=== PATIENT | female | born 1930 | race Caucasian/White ===

== ENCOUNTER → 2016-07-03 | Outpatient (CLI) | payer BC ==
[~2016-07-03] MED LIST: CALC-452 PO; CIPR250T5 PO; CLC100 PO; FSM70 PO; GLC500 PO; LSN25 PO; LSX40 PO; MULT-506 PO; NTRGSL/4 SL; OXGN; PANT40TA2 PO; POTA20TA16 PO; SIMV-151 PO; SPR25 PO; TPRSR/50 PO; WARF-246 PO
[2016-07-03 13:15] VITALS: BP 109/63; PULSE 71; TEMP 36.5; O2SAT 89
--- NOTE | 2016-07-03 14:22 | Radiation Oncology Follow-Up ---
Radiation Oncology Follow-Up Date of Visit July 03, 2016. Reason For Visit Annual follow-up Radiation Completion Date 11/29/11 Diagnosis (1) Lung cancer Status: Chronic Onset Date: 08/28/2011 Histology Subtype: adenocarcinoma Stage: lll (A) Permanent Comment: History of abnormal chest x-ray CT scan revealing a right upper lobe mass/consolidation status post bronchoscopy and biopsy 08/28/2011 revealing moderately differentiated adenocarcinoma Status post PET/CT. Clinical stage [id number] Inoperable Status post combined radiation and chemotherapy Radiation completed 11/29/2011 received 7020 cGy Last Edited By: Sherrie Alan on Oct 18, 2014 12:06 Interim History She's been doing well over this past year. She feels her respiratory status is stable. She uses oxygen at bedtime on a regular basis. She uses her oxygen during the day if having increased activity. 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 She is followed closely by her heavy equipment engine mechanic Dr. Estrada. She previously been hospitalized and had a thoracentesis due to a pleural effusion caused by congestive heart failure. He monitors her condition. Her Lasix was increased to one and half tablets per day. She did not require any further follow-up with pulmonary. She had undergone a hip replacement this past year. Unfortunately she developed a DVT. She is now on chronic anticoagulation. She saw Dr. Miner in follow-up 04/04/2016. She was discharged from follow-up by medical oncology. Allergies Coded Allergies: Aspirin (Verified Adverse Reaction, Intermediate, BLEEDING STOMACH, ) Nifedipine (Verified Adverse Reaction, Intermediate, SWELLS, 09/20/15) Oxycodone (Unverified Adverse Reaction, Intermediate, causes her to sleep , hard to wake up, 07/03/16) Home Medications Scheduled Alendronate Sodium (Alendronate Sodium), 70 MG PO WK Calcium Carbonate-Cholecalcife (Calcium 600 + D 600-200 mg-Unit), 1 TAB PO BID Docusate Sodium (Docusate Sodium), 100 MG PO BID Lisinopril (Lisinopril), 2.5 MG PO DAILY Metformin HCl (Metformin HCl), 500 MG PO BID Metoprolol Succinate (Metoprolol Succinate ER), 75 MG PO BID Multivitamin (Multivitamin), 1 TAB PO DAILY Pantoprazole (Pantoprazole Sodium), 40 MG PO DAILY Potassium Ext Rel (Klor-Con), 20 MEQ PO BIDM Simvastatin (Simvastatin), 20 MG PO HS Scheduled PRN Nitroglycerin (Nitrostat), 0.4 MG SL UD PRN for Chest Pain Review of Systems Gastrointestinal: Symptoms: WNL Oral: Symptoms: No Problems Respiratory: Symptoms: SOB With Exertion Respiratory Comments: oxygen 2L prn Urinary: Symptoms: WNL Skin: Symptoms: No Problems Physical Exam Vital Signs Date Time Temp Pulse Resp B/P Pulse Ox O2 Delivery O2 Flow Rate FiO2 07/03/16 13:15 36.5 71 24 109/63 89 Fatigue: None General Appearance: no apparent distress Eyes: normal inspection, EOMI ENT: normal ENT inspection, hearing grossly normal Neck: supple, no adenopathy, thyroid normal Respiratory/Chest: lungs clear, no respiratory distress, no accessory muscle use, + decreased breath sounds Cardiovascular: regular rate, rhythm, no gallop, no murmur Abdomen: non tender, soft Extremities: no pedal edema Neurologic/Psychiatric: no motor/sensory deficits, alert, normal mood/affect Skin: warm/dry Assessment & Plan Plan: She'll now continue follow-up with her primary care physician. She'll also continue follow-up with Dr. Estrada. She will continue to use the oxygen as needed. A follow-up appointment with our office was not given. She may call if she has any questions or concerns regarding happy to see her. Total Time In Follow-Up I spent 20 minutes speaking to the patient and performing examination. I spent 15 minutes reviewing information and completing this note. Copy To Aries Estrdaa D.O.; Stan Vinson M.D. Problem Qualifiers (1) Lung cancer: Laterality: right Lung location: upper lobe of lung Qualified Codes: C34.11 - Malignant neoplasm of upper lobe, right bronchus or lung
== END | disposition home or self-care (01) ==
LOC: C.ONC 13:01
PROVIDERS: ATTEND Physician Assistant Medical
DX: Z08 Encounter for follow-up examination after completed treatment for malignant neoplasm (principal); Z92.3 Personal history of irradiation; Z85.118 Personal history of other malignant neoplasm of bronchus and lung

== ENCOUNTER 2016-11-24 05:29 | Inpatient (IN) | payer BC, OTHER ==
[2016-11-24] VITALS (11 sets, daily range): BP systolic 123–152; BP diastolic 68–75; PULSE 72–111; TEMP 36.4–36.7; O2SAT 91–97; Ht 167.6 cm; Wt 69.4 kg
[~2016-11-24] VITALS: Ht 167.6 cm; Wt 69.4 kg
[~2016-11-24 05:29] MED LIST changes: -CIPR250T5 PO; -LSX40 PO; -OXGN; -PANT40TA2 PO; +PRT/40 PO; -SPR25 PO; -WARF-246 PO
[2016-11-24] MEDS ORDERED: FUROSEMIDE 40 MG/4 ML VIAL IV STA (05:35)
[2016-11-24] MEDS ORDERED: NITROGLYCERIN OINT 2% 1GM PACKET EXT ONE (05:45)
[2016-11-24 06:01] LABS: BASO % 0.4 %; BASO ABS # 0.04 K/uL (0-0.2); COMPLETE YES; EOS % 2.4 %; HEMATOCRIT 41.3 % (37-47); IG% 0.2 %; LYMPH % 23.3 %; LYMPH ABS # 2.61 K/uL (1.2-3.4); MEAN CELL VOLUME 88.8 fL (80-100); MEAN CORPUSCULAR HEMOGLOBIN 28.4 pg (25-34); MEAN PLATELET VOLUME 9.1 fL (7.4-10.4); MONO % 5.5 %; NEUT % 68.2 %; PLATELET COUNT 265 K/uL (130-400); RED BLOOD COUNT 4.65 M/uL (4.2-5.4); WHITE BLOOD COUNT 11.21 K/uL (4.8-10.8)
[2016-11-24 06:21] LABS: ALT/SGPT 20 U/L (12-78); AST/SGOT 20 U/L (15-37); BLOOD UREA NITROGEN 18 mg/dl (7-18); CALCIUM 9.4 mg/dl (8.5-10.1); CARBON DIOXIDE 26 mmol/L (21-32); CHLORIDE 103 mmol/L (98-107); GLUCOSE 224 mg/dl (70-99); POTASSIUM 4.7 mmol/L (3.5-5.1); SODIUM 138 mmol/L (136-145)
[2016-11-24] MEDS ORDERED: SPR25 PO (06:25)
[2016-11-24] MEDS ORDERED: LSX40 PO (06:26)
[2016-11-24 06:27] LABS: ALB/GLOB RATIO 0.8 (0.9-2); ALKALINE PHOSPHATASE 71 U/L (45-117); CKMB/CK RATIO 2.1 (0-3.0)
[2016-11-24] MEDS ORDERED: WARF-246 PO (06:28)
[2016-11-24] MEDS ORDERED: OXGN (06:31)
[2016-11-24 06:58] LABS: INR 1.9 (0.9-1.1); PARTIAL THROMBOPLASTIN RATIO 1.3; PROTHROMBIN TIME (PATIENT) 20.6 SECONDS (9.0-12.0)
--- NOTE | 2016-11-24 06:59 | EMERGENCY ROOM VISIT NOTE ---
History Report prepared by Xi: Bala Rebolledo Under the Supervision of: Dr. Geovani Jean D.O. First contact with patient: 05:33 Chief Complaint: RESPIRATORY DISTRESS Stated Complaint: RESPIRATORY DISTRESS History of Present Illness The patient is an 86 year old female who presents to the Emergency Room with complaints of worsening shortness of breath beginning 2 hours ago. EMS states the patient woke up in respiratory distress. They report the patient has been experiencing a cough for two days, and she was given two squirts fo nitro in route. EMS notes the patient also received C-PAP, and she states it helped her symptoms. They state the patient first spat yellow sputum on their arrival, and she vomited on arrival to the ED. EMS reports the patient denies chest pain. In the room, the patient had an O2Sat of 80 on NC. Source of History: EMS Onset: 2 hours ago Position: chest Quality: other (SOB) Timing: worsening Associated Symptoms: No chest pain Review of Systems See HPI for pertinent positives & negatives. A total of 10 systems reviewed and were otherwise negative. Past Medical & Surgical Medical Problems: (1) CHF (congestive heart failure) (2) CHF exacerbation (3) Chronic combined systolic (congestive) and diastolic (congestive) heart failure (4) CKD (chronic kidney disease), stage III (5) Diabetes (6) Dyslipidemia (7) H/O: GI bleed (8) History of sinus tachycardia (9) Hypertension (10) Left bundle branch block (11) Lung cancer (12) Nonischemic cardiomyopathy (13) Nonobstructive CAD (14) Pulmonary embolism Surgical Problems: (1) H/O adenoidectomy (2) Hx of appendectomy (3) Hx of cholecystectomy (4) Hx of tonsillectomy (5) S/P BSO (bilateral salpingo-oophorectomy) (6) S/P repair of ventral hernia Family History Cancer BROTHER SISTER Diabetes mellitus MOTHER Heart disease FATHER Hypertension MOTHER Lung disease Stroke MOTHER Social History Smoking Status: Former Smoker Alcohol Use: none Drug Use: none Marital Status: Housing Status: lives alone Occupation Status: retired Current/Historical Medications Scheduled Alendronate Sodium (Alendronate Sodium), 70 MG PO WK Calcium Carbonate-Cholecalcife (Calcium 600 + D 600-200 mg-Unit), 1 TAB PO BID Docusate Sodium (Docusate Sodium), 100 MG PO BID Furosemide (Furosemide), 40 MG PO DAILY Home O2 Therapy (Oxygen), 2 LITERS NA CONTINOUS Lisinopril (Lisinopril), 2.5 MG PO DAILY Metformin HCl (Metformin HCl), 500 MG PO BID Metoprolol Succinate (Metoprolol Succinate ER), 75 MG PO BID Multivitamin (Multivitamin), 1 TAB PO DAILY Pantoprazole (Pantoprazole Sodium), 40 MG PO DAILY Simvastatin (Simvastatin), 20 MG PO HS Spironolactone (Spironolactone), 12.5 MG PO DAILY Warfarin Sodium (Warfarin Sodium), 5 MG PO DAILY Scheduled PRN Nitroglycerin (Nitrostat), 0.4 MG SL UD PRN for Chest Pain Allergies Coded Allergies: Aspirin (Verified Adverse Reaction, Intermediate, BLEEDING STOMACH, ) Nifedipine (Verified Adverse Reaction, Intermediate, SWELLS, 11/24/16) Oxycodone (Verified Adverse Reaction, Intermediate, causes her to sleep, hard to wake up, 11/24/16) Physical Exam Vital Signs Date Time Temp Pulse Resp B/P (MAP) Pulse Ox O2 Delivery O2 Flow Rate FiO2 11/24/16 06:32 79 20 109/61 98 CPAP 11/24/16 06:31 11/24/16 06:29 78 18 99 11/24/16 06:01 144/81 11/24/16 05:59 92 24 96 11/24/16 05:43 111 95 70 11/24/16 05:43 97 CPAP 70 11/24/16 05:38 129 11/24/16 05:37 37.3 110 28 176/100 86 Nasal Cannula 3.0 11/24/16 05:37 86 Nasal Cannula 3.0 11/24/16 05:37 86 Nasal Cannula 3.0 11/24/16 05:34 176/101 Physical Exam CONSTITUTIONAL/VITAL SIGNS: Reviewed / noted above. GENERAL: Non-toxic in appearance. INTEGUMENTARY: Warm, dry, and [place]. HEAD: Normocephalic. EYES: without scleral icterus or trauma. ENT/OROPHARYNX: clear and moist. LYMPHADENOPATHY/NECK: Is supple without lymphadenopathy or meningismus. RESPIRATORY: Rales and rhonchi bilaterally, worse on right. Increased workers breathing and respiratory distress. CARDIOVASCULAR: Regular rate and rhythm. GI/ABDOMEN: Soft and nontender. No organomegaly or pulsatile mass. No rebound or guarding. Normal bowel sounds. EXTREMITIES: Warm and well perfused. BACK: No CVA tenderness. NEUROLOGICAL: Intact without focal deficits. PSYCHIATRIC: normal affect. MUSCULOSKELETAL: Normally developed with good muscle tone. Medical Decision & Procedures ER Provider Diagnostic Interpretation: X ray results and stated below per my interpretation and radiology interpretation. One view chest: Diffuse interstitial changes concerning for CHF. Laboratory Results 11/24/16 05:50 Red Blood Count 4.65, Mean Corpuscular Volume 88.8, Mean Corpuscular Hemoglobin 28.4, Mean Corpuscular Hemoglobin Concent 32.0, Mean Platelet Volume 9.1, Neutrophils (%) (Auto) 68.2, Lymphocytes (%) (Auto) 23.3, Monocytes (%) (Auto) 5.5, Eosinophils (%) (Auto) 2.4, Basophils (%) (Auto) 0.4, Neutrophils # (Auto) 7.65, Lymphocytes # (Auto) 2.61, Monocytes # (Auto) 0.62, Eosinophils # (Auto) 0.27, Basophils # (Auto) 0.04 11/24/16 05:50 Test 11/24/16 05:50 11/24/16 05:57 11/24/16 06:39 White Blood Count 11.21 K/uL (4.8-10.8) Red Blood Count 4.65 M/uL (4.2-5.4) Hemoglobin 13.2 g/dL (12.0-16.0) Hematocrit 41.3 % (37-47) Mean Corpuscular Volume 88.8 fL (80-100) Mean Corpuscular Hemoglobin 28.4 pg (25-34) Mean Corpuscular Hemoglobin Concent 32.0 g/dl (32-36) Platelet Count 265 K/uL (130-400) Mean Platelet Volume 9.1 fL (7.4-10.4) Neutrophils (%) (Auto) 68.2 % Lymphocytes (%) (Auto) 23.3 % Monocytes (%) (Auto) 5.5 % Eosinophils (%) (Auto) 2.4 % Basophils (%) (Auto) 0.4 % Neutrophils # (Auto) 7.65 K/uL (1.4-6.5) Lymphocytes # (Auto) 2.61 K/uL (1.2-3.4) Monocytes # (Auto) 0.62 K/uL (0.11-0.59) Eosinophils # (Auto) 0.27 K/uL (0-0.5) Basophils # (Auto) 0.04 K/uL (0-0.2) RDW Standard Deviation 51.6 fL (36.4-46.3) RDW Coefficient of Variation 16.0 % (11.5-14.5) Immature Granulocyte % (Auto) 0.2 % Immature Granulocyte # (Auto) 0.02 K/uL (0.00-0.02) Anion Gap 9.0 mmol/L (3-11) Est Creatinine Clear Calc Drug Dose 32.0 ml/min Estimated GFR () 42.7 Estimated GFR (Non- 36.9 BUN/Creatinine Ratio 14.0 (10-20) Calcium Level 9.4 mg/dl (8.5-10.1) Total Bilirubin 0.4 mg/dl (0.2-1) Aspartate Amino Transf (AST/SGOT) 20 U/L (15-37) Alanine Aminotransferase (ALT/SGPT) 20 U/L (12-78) Alkaline Phosphatase 71 U/L (45-117) Total Creatine Kinase 56 U/L (26-192) Creatine Kinase MB 1.2 ng/ml (0.5-3.6) Creatine Kinase MB Ratio 2.1 (0-3.0) Troponin I < 0.015 ng/ml (0-0.045) Pro-B-Type Natriuretic Peptide 6308 pg/ml (0-1800) Total Protein 7.9 gm/dl (6.4-8.2) Albumin 3.5 gm/dl (3.4-5.0) Globulin 4.4 gm/dl (2.5-4.0) Albumin/Globulin Ratio 0.8 (0.9-2) Bedside Lactic Acid Venous 2.90 mmol/L (0.90-1.70) Laboratory results as stated above per my review. Medications Administered Medications (Trade) Dose Ordered Sig/Tiara Route Start Time Stop Time Status Last Admin Dose Admin Furosemide (Lasix Inj) 40 mg NOW STAT IV 11/24/16 05:35 11/24/16 05:37 DC 11/24/16 05:56 40 MG Nitroglycerin (Nitroglycerin 2% Oint) 1 inch NOW ONCE EXT 11/24/16 05:45 11/24/16 05:46 DC 11/24/16 05:56 1 INCH ECG Indication: SOB/dyspnea Rate (beats per minute): 105 Findings: LBBB, PVC, no acute ischemic change Comparison ECG Date: 09/14/15 Change: LBBB is chronic ED Course 0533: Previous medical records were reviewed. The patient was evaluated in room B01. A complete history and physical examination was performed. 0535: Ordered Furosemide 40mg IV 0545: Ordered Nitroglycerin 1in EXT 0651: I discussed the patient's case with Pio Byrd. The patient will be evaluated for further management and care. 0653: On reevaluation, the patient is resting. I discussed the results and findings with her. She verbalized agreement of the treatment plan. Medical Decision Differentials considered include acute myocardial infarction, acute coronary syndrome, myocarditis, pericarditis, pericardial effusions /tamponade, esophageal perforation, pulmonary embolism, pneumonia, pneumothorax, cardiomyopathy, congestive heart, anemia, and COPD/asthma exacerbation. This is a 86-year-old female who presents to the ED with a chief complaint of acute shortness of breath. The patient symptoms awoke her from sleep this morning. She was transported here by EMS. CPAP improved her symptoms. She was given nitroglycerin sublingual by EMS for hypertension. On her arrival here , she was hypoxic on nasal cannula oxygen with saturations in the low 80s. She improved with BiPAP. She was given IV Lasix as well as nitro paste. The patient has a chest x-ray suggesting acute pulmonary edema. CBC is unremarkable. Troponin was negative. BNP is 6380. The patient was improving during her ED stay. Her saturations were 99% on BiPAP. She felt more comfortable with her breathing. This was removed and she was able to be placed on oxygen via nasal cannula. The patient will be seen by the hospitalist for further inpatient evaluation and care. Consults Time Called: [phone] Consulting Physician: Pio Byrd Returned Call: [phone] I discussed the patient's case with Pio Byrd. The patient will be evaluated for further management and care. Impression Primary Impression: CHF (congestive heart failure) Additional Impressions: Pulmonary edema Respiratory failure Scribe Attestation The scribe's documentation has been prepared under my direction and personally reviewed by me in its entirety. I confirm that the note above accurately reflects all work, treatment, procedures, and medical decision making performed by me. Departure Information Dispostion Being Evaluated By Hospitalist Referrals Stan Vinson M.D. (PCP) Patient Instructions Asthma - [facility], COPD - [facility], Croup - [facility], My [facility] Problem Qualifiers
--- NOTE | 2016-11-24 07:41 | History and Physical ---
History & Physical Date & Time of Service: Nov 24, 2016 at 07:41 . Chief Complaint: difficulty breathing . Primary Care Physician: Stan Vinson M.D. . History of Present Illness Source: patient, clinic records, hospital records 86 YO female followed by Dr. Vinson for Family Medicine and Dr. Estrada for Cardiology. History of nonischemic cardiomyopathy (LVEF 20-25%), nonobstructive CAD, pulmonary embolism, lung Ca, and other problems noted below. She was in her usual state of fair health until around 04:30 this morning when she awoke from sleep with acute dyspnea. No fever. Mild nonproductive cough. No chest pain. No edema. Nausea, no vomiting. No recent weight gain. No recent med changes. She was brought to ED where she was found to be hypoxic and in respiratory distress. Placed on BiPAP and received O2, IV furosemide, NTP with improvement of her symptoms. . Past Medical/Surgical History Chronic and Resolved Medical Problems: (1) Chronic combined systolic (congestive) and diastolic (congestive) heart failure Status: Chronic (2) CKD (chronic kidney disease), stage III Status: Chronic (3) Diabetes mellitus, type 2 Status: Chronic (4) Dyslipidemia Status: Chronic (5) H/O: GI bleed Permanent Comment: due to aspirin (per records) Status: Chronic (6) History of sinus tachycardia Status: Chronic (7) Hypertension Status: Chronic (8) Left bundle branch block Status: Chronic (9) Lung cancer Permanent Comment: History of abnormal chest x-ray CT scan revealing a right upper lobe mass/consolidation status post bronchoscopy and biopsy 08/28/2011 revealing moderately differentiated adenocarcinoma Status post PET/CT. Clinical stage [id number] Inoperable Status post combined radiation and chemotherapy Radiation completed 11/29/2011 received 7020 cGy Status: Chronic (10) Nonischemic cardiomyopathy Permanent Comment: likely tachycardia induced, EF 20-25% Status: Chronic (11) Nonobstructive CAD Status: Chronic (12) Pulmonary embolism Permanent Comment: On coumadin Status: Chronic Surgical Problems: (1) H/O adenoidectomy Status: Chronic (2) Hx of appendectomy Status: Chronic (3) Hx of cholecystectomy Status: Chronic (4) Hx of tonsillectomy Status: Chronic (5) S/P BSO (bilateral salpingo-oophorectomy) Status: Chronic (6) S/P repair of ventral hernia Status: Chronic . Family History FATHER Heart disease MOTHER Diabetes mellitus Stroke Hypertension BROTHER Cancer SISTER Cancer Relation not specified for: Lung disease Social History Smoking Status: Former Smoker Alcohol Use: none Drug Use: none Marital Status: Housing status: lives alone Occupational Status: retired Immunizations History of Influenza Vaccine: Yes History of Tetanus Vaccine?: Yes Tetanus Immunization Date: Jan 04, 2011 History of Pneumococcal: Yes Multi-Drug Resistant Organisms History of MDRO: No Allergies Coded Allergies: Aspirin (Verified Adverse Reaction, Intermediate, BLEEDING STOMACH, ) Nifedipine (Verified Adverse Reaction, Intermediate, SWELLS, 11/24/16) Oxycodone (Verified Adverse Reaction, Intermediate, causes her to sleep, hard to wake up, 11/24/16) Home Medications Scheduled Alendronate Sodium (Alendronate Sodium), 70 MG PO WK Calcium Carbonate-Cholecalcife (Calcium 600 + D 600-200 mg-Unit), 1 TAB PO BID Docusate Sodium (Docusate Sodium), 100 MG PO BID Furosemide (Furosemide), 40 MG PO DAILY Home O2 Therapy (Oxygen), 2 LITERS NA CONTINOUS Lisinopril (Lisinopril), 2.5 MG PO DAILY Metformin HCl (Metformin HCl), 500 MG PO BID Metoprolol Succinate (Metoprolol Succinate ER), 75 MG PO BID Multivitamin (Multivitamin), 1 TAB PO DAILY Pantoprazole (Pantoprazole Sodium), 40 MG PO DAILY Simvastatin (Simvastatin), 20 MG PO HS Spironolactone (Spironolactone), 12.5 MG PO DAILY Warfarin Sodium (Warfarin Sodium), 0 PO UD Scheduled PRN Nitroglycerin (Nitrostat), 0.4 MG SL UD PRN for Chest Pain Review of Systems Constitutional: No fever, No weight loss Eyes: No worsening of vision, No diplopia ENT: No nasal symptoms, No sore throat Respiratory: + problem reported (per HPI) Cardiovascular: + problem reported (per HPI) Abdomen: + nausea, No pain, No vomiting, No diarrhea, No GI bleeding Musculoskeletal: + joint pain Genitourinary - Female: No dysuria, No hematuria Neurologic: + problem reported (no headache, no diabetic neuropathy) Endocrine: + problem reported (blood sugars well controlled), No excessive thirst, No excessive urination Hematologic / Lymphatic: No abnormal bleeding/bruising, No swollen lymph nodes Integumentary: No rash, No new/changing skin lesions Physical Exam Vital Signs Date Time Temp Pulse Resp B/P (MAP) Pulse Ox O2 Delivery O2 Flow Rate FiO2 11/24/16 07:18 91 Nasal Cannula 4.0 11/24/16 07:11 90 Nasal Cannula 4.0 11/24/16 07:10 87 Nasal Cannula 3.0 11/24/16 06:32 79 20 109/61 98 CPAP 11/24/16 06:31 11/24/16 06:29 78 18 99 11/24/16 06:01 144/81 11/24/16 05:59 92 24 96 11/24/16 05:43 111 95 70 11/24/16 05:43 97 CPAP 70 11/24/16 05:38 129 11/24/16 05:37 37.3 110 28 176/100 86 Nasal Cannula 3.0 11/24/16 05:37 86 Nasal Cannula 3.0 11/24/16 05:37 86 Nasal Cannula 3.0 11/24/16 05:34 176/101 General Appearance: WD/WN, + mild distress Head: normocephalic, atraumatic Eyes: normal inspection, PERRL, EOMI, sclerae normal (conjunctivae pink) ENT: hearing grossly normal, pharynx normal, + pertinent finding (upper dentures) Neck: supple, no adenopathy, thyroid normal, trachea midline Respiratory/Chest: no accessory muscle use, + crackles Cardiovascular: regular rate, rhythm, no edema, no gallop (none appreciated, exam limited), no murmur (none appreciated, exam limited), + JVD Abdomen/GI: normal bowel sounds, non tender, soft, no organomegaly Extremities/Musculoskelatal: normal inspection, no calf tenderness, no pedal edema, + pertinent finding (capillary refill toes 1-2 sec; pedal pulses diminished) 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 (PERRL, EOMI, no facial palsy, no dysarthria), no motor/sensory deficits (motor strength upper and lower extremities grossly intact), alert, normal mood/affect, normal reflexes ( patellar reflexes 2/2; plantar reflexes downgoing), oriented x 3 Skin: normal color, warm/dry, no rash Lymphatic: no adenopathy (cervical) Diagnostics Laboratory Results Results Past 24 Hours Test 11/24/16 05:50 11/24/16 05:57 11/24/16 06:39 Range/Units White Blood Count 11.21 4.8-10.8 K/uL Red Blood Count 4.65 4.2-5.4 M/uL Hemoglobin 13.2 12.0-16.0 g/dL Hematocrit 41.3 37-47 % Mean Corpuscular Volume 88.8 80-100 fL Mean Corpuscular Hemoglobin 28.4 25-34 pg Mean Corpuscular Hemoglobin Concent 32.0 32-36 g/dl Platelet Count 265 130-400 K/uL Mean Platelet Volume 9.1 7.4-10.4 fL Neutrophils (%) (Auto) 68.2 % Lymphocytes (%) (Auto) 23.3 % Monocytes (%) (Auto) 5.5 % Eosinophils (%) (Auto) 2.4 % Basophils (%) (Auto) 0.4 % Neutrophils # (Auto) 7.65 1.4-6.5 K/uL Lymphocytes # (Auto) 2.61 1.2-3.4 K/uL Monocytes # (Auto) 0.62 0.11-0.59 K/uL Eosinophils # (Auto) 0.27 0-0.5 K/uL Basophils # (Auto) 0.04 0-0.2 K/uL RDW Standard Deviation 51.6 36.4-46.3 fL RDW Coefficient of Variation 16.0 11.5-14.5 % Immature Granulocyte % (Auto) 0.2 % Immature Granulocyte # (Auto) 0.02 0.00-0.02 K/uL Sodium Level 138 136-145 mmol/L Potassium Level 4.7 3.5-5.1 mmol/L Chloride Level 103 98-107 mmol/L Carbon Dioxide Level 26 21-32 mmol/L Anion Gap 9.0 3-11 mmol/L Blood Urea Nitrogen 18 7-18 mg/dl Creatinine 1.30 0.60-1.20 mg/dl Est Creatinine Clear Calc Drug Dose 32.0 ml/min Estimated GFR () 42.7 Estimated GFR (Non- 36.9 BUN/Creatinine Ratio 14.0 10-20 Random Glucose 224 70-99 mg/dl Calcium Level 9.4 8.5-10.1 mg/dl Total Bilirubin 0.4 0.2-1 mg/dl Aspartate Amino Transf (AST/SGOT) 20 15-37 U/L Alanine Aminotransferase (ALT/SGPT) 20 12-78 U/L Alkaline Phosphatase 71 45-117 U/L Total Creatine Kinase 56 26-192 U/L Creatine Kinase MB 1.2 0.5-3.6 ng/ml Creatine Kinase MB Ratio 2.1 0-3.0 Troponin I < 0.015 0-0.045 ng/ml Pro-B-Type Natriuretic Peptide 6308 0-1800 pg/ml Total Protein 7.9 6.4-8.2 gm/dl Albumin 3.5 3.4-5.0 gm/dl Globulin 4.4 2.5-4.0 gm/dl Albumin/Globulin Ratio 0.8 0.9-2 Bedside Lactic Acid Venous 2.90 0.90-1.70 mmol/L Prothrombin Time 20.6 9.0-12.0 SECONDS Prothromb Time International Ratio 1.9 0.9-1.1 Activated Partial Thromboplast Time 34.3 21.0-31.0 SECONDS Partial Thromboplastin Ratio 1.3 Microbiology Results 11/24/16 Blood Culture, Received Pending 11/24/16 Blood Culture, Received Pending Diagnostic Radiology CHEST ONE VIEW PORTABLE FINDINGS: Progressive diffuse interstitial thickening and small bilateral pleural effusions. The heart remains mildly enlarged. No pneumothorax. Right perihilar linear densities may be due to atelectasis. IMPRESSION: Progressive interstitial thickening and small bilateral pleural effusions. This suggest mild pulmonary edema. Electronically signed by: Ryland Graham M.D. 11/24/2016 7:40 AM Dictated Date/Time: 11/24/2016 7:39 AM . EKG EKG performed at 05:[address] at 105 / minute, PVC's, LBBB , repolarization abnormalities. . Impression Assessment and Plan ACUTE RESPIRATORY FAILURE Presented with hypoxia, tachypnea, respiratory distress requiring ventilatory support with BiPAP. Most likely due to CHF as discussed below. Continue supplemental O2. BiPAP PRN. CHF Acute on chronic left ventricular systolic and diastolic failure - apparent flash pulmonary edema, mechanism uncertain. [place] to have nonischemic cardiomyopathy. LVEF 20-25% per previous echo- no need to repeat at this time. Exam, chest x-ray, BNP consistent with acute CHF. Received IV furosemide in ED. Repeat dose of IV furosemide this afternoon; further dosing per reassessment tomorrow morning. Received NTP in ED- continue. Continue spironolactone, lisinopril, metoprolol succinate. Consult Cardiology. CORONARY ARTERY DISEASE History nonocclusive coronary artery disease. No chest pain. Check serial cardiac markers. Continue metoprolol. HYPERTENSION Continue cardiovascular meds as noted above. Follow and titrate Rx. CHRONIC RESPIRATORY FAILURE On home O2 2 LPM. Continue supplemental O2. ABNORMAL CHEST X-RAY Chest x-ray shows apparent atelectasis right lung, similar to 2016. Has prior history of lung Ca as summarized in problem list. X-ray findings appear to be chronic. No further evaluation at this time. CKD III Serum creatinine 1.3. Monitor closely while received IV diuretics. DM TYPE 2 Usually managed with metformin. Hgb A1C 6.5 in clinic 10/31/16. Random glucose in ED 224. Hold metformin while acutely ill. Lantus / NovoLog per protocol with liberal goal range. VTE PROPHYLAXIS Continue warfarin. Ambulate. RESUSCITATION STATUS Discussed with patient and her family. She has a living will. She prefers a natural passing and does not want CPR, intubation, or other extraordinary measures to be attempted in the event of a cardiopulmonary arrest. Resuscitation status, therefore, is "Level 5" (DNR). . VTE Prophylaxis Risk Level: Moderate Given or contraindicated: Warfarin (Coumadin)
[2016-11-24] MEDS ORDERED: ACETAMINOPHEN 325 MG TAB PO PRN (07:45)
[2016-11-24] MEDS ORDERED: NITROGLYCERIN 0.4 MG SL PER TAB CHARGE SL PRN ×2 (07:45→10:30)
[2016-11-24] MEDS ORDERED: LISINOPRIL 2.5 MG TAB PO ONE (10:20)
[2016-11-24] MEDS ORDERED: METOPROLOL SUCC 25MG EXT REL TAB PO ONE (10:20)
[2016-11-24] MEDS ORDERED: MULTIVITAMIN TAB PO ONE (10:20)
[2016-11-24] MEDS ORDERED: DOCUSATE SODIUM 100 MG CAP PO ONE (10:20)
[2016-11-24] MEDS ORDERED: SPIRONOLACTONE 25 MG TAB PO ONE (10:20)
[2016-11-24] MEDS ORDERED: PANTOprazole SOD 40 MG TAB PO ONE (10:20)
[2016-11-24] MEDS ORDERED: INSULIN GLARGINE SOLOSTAR 100 UNITS/ML 3 ML PEN SC ONE (10:32)
[2016-11-24] MEDS ORDERED: GLUCAGON FOR INJ 1 MG VIAL SQ PRN (11:30)
[2016-11-24] MEDS ORDERED: GLUCOSE 10 TABS/TUBE PO PRN (11:30)
[2016-11-24] MEDS ORDERED: GLUCOSE 40% GEL 15 GM TUBE PO PRN (11:30)
[2016-11-24] MEDS ORDERED: DEXTROSE 50% 50 ML SYR IV PRN (11:30)
[2016-11-24] MEDS: NITROGLYCERIN OINT 2% 1GM PACKET EXT SCH ×3 (12:39→23:45)
[2016-11-24] MEDS: INSULIN ASPART 100 UNITS/ML 3 ML PEN SC SCH ×3 (12:47→20:10)
--- NOTE | 2016-11-24 13:10 | CARDIOLOGY CONSULTATION ---
DATE OF CONSULTATION: 11/24/2016 REFERRING PHYSICIAN: Dr. Randy Powell. REASON FOR CONSULTATION: Heart failure. HISTORY OF PRESENT ILLNESS: Ms. Ortiz is an 86-year-old female with a history of nonischemic cardiomyopathy and ejection fraction of 20%-25%. She was in her usual state of health yesterday and was quite active around her home. She awoke this morning at approximately 4 a.m. with acute shortness of breath. She summoned EMS and was brought to the Emergency Department. The patient was treated with sublingual nitroglycerin en route. On arrival to the ER, she was noted to be hypoxic. She was treated with BiPAP and intravenous furosemide. The patient's symptoms greatly improved. She has diuresed approximately 300 mL per review of records. Currently, her BiPAP has been removed. She is sitting upright and tolerated her midday meal. She continues to wear supplemental oxygen. At home, she uses supplemental oxygen as needed as well as at bedtime. Her most recent echocardiogram was performed in June 2015, confirming nonischemic cardiomyopathy. The patient denies any recent weight gain, lower extremity edema, orthopnea, or PND. Her functional capacity has been stable. Denies any chest discomfort, heaviness, or tightness. She has been compliant with medications. Denies any excessive sodium or fluid intake. She notes yellow sputum production and cough. Voices concern regarding possible bronchitis. She also notes some suprapubic tenderness and voices concern whether she is suffering from a bladder infection. She otherwise offers no other complaints at this time. REVIEW OF SYSTEMS: The pertinent positives noted above. A comprehensive 10-system review otherwise negative. PAST MEDICAL HISTORY: 1. Nonischemic cardiomyopathy with an ejection fraction of 20%-25%, declining ICD implantation in the past. 2. Chronic systolic heart failure with a history of decompensation in the past. 3. Nonsmall cell lung carcinoma, inoperable, treated with chemotherapy and radiation. 4. Left bundle branch block. 5. 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 6. Hypertension. 7. CKD, stage III. 8. Pleural effusions requiring thoracentesis. 9. Gastrointestinal bleed due to aspirin for review of records. 10. Nonobstructive coronary artery disease per cardiac catheterization in March 2015. PAST SURGICAL HISTORY: 1. Cardiac catheterization in March 2015, demonstrating a 60% ramus stenosis as well as 40%-50% mid RCA stenosis. 2. Tonsil and adenoidectomy. 3. Appendectomy. 4. Cholecystectomy. 5. Bilateral salpingo-oophorectomy. 6. Ventral hernia repair. FAMILY HISTORY: Negative for premature CAD or sudden cardiac ; however, noncontributory given the patient's age. SOCIAL HISTORY: Former tobacco abuse, she is , and she lives alone. ALLERGIES: ASPIRIN, NIFEDIPINE, AND OXYCODONE. CURRENT HOME MEDICATIONS: 1. Alendronate 70 mg weekly. 2. Calcium carbonate daily. 3. Colace daily. 4. Lasix 40 mg daily. 5. Oxygen 2 liters nasal cannula. 6. Lisinopril 2.5 mg daily. 7. Metformin 500 mg twice daily. 8. Toprol-XL 75 mg twice daily. 9. Multivitamin daily. 10. Protonix 40 mg daily. 11. Simvastatin 20 mg at bedtime. 12. Aldactone 12.5 mg daily. 13. Coumadin 5 mg as directed by the anticoagulation clinic. ECG on admission demonstrates sinus rhythm with a left bundle branch block. Chest x-ray on admission demonstrates pulmonary edema. Telemetry demonstrates sinus rhythm, left bundle branch block. LABORATORY DATA: INR is 1.9. Sodium is 130, potassium 4.7, chloride 103, CO2 is 26, BUN is 18, creatinine 1.30, and glucose 350. ProBNP 6308. White blood cell count 11.21, hemoglobin is 13.2, and platelet count is 265. PHYSICAL EXAMINATION: VITAL SIGNS: Temperature is 36.5 degrees centigrade, pulse is 78 beats per minute and regular, respiratory rate 16 breaths per minute, blood pressure 126/68 and SaO2 is 94% on 4 liters nasal cannula. GENERAL: NAD, awake, alert and oriented x3. HEENT: Her mucous membranes are moist. No scleral icterus. Conjunctivae pink. NECK: Supple without carotid bruit. There is no evidence of jugular venous distention in upright position. LUNGS: Demonstrate clear breath sounds, which are mildly diminished at the bases bilaterally. No rales, rhonchi or wheeze. ABDOMEN: Soft and nontender. No rebound or guarding. Normal bowel sounds. EXTREMITIES: Warm and dry. There is no clubbing, cyanosis, or edema. NEUROLOGIC: Demonstrates no focal deficit. FINAL IMPRESSION: 1. An 86-year-old female admitted with acute decompensated systolic heart failure and symptoms consistent with flash pulmonary edema. No precipitating factors elucidated per history. Cardiac enzymes negative thus far without ongoing chest discomfort. No paroxysmal dysrhythmias per review of telemetry. 2. Nonischemic cardiomyopathy, ejection fraction of 20%-25%, declining ICD therapy in the past. 3. Nonobstructive coronary artery disease per cardiac catheterization in March 2015. 4. Hypertension -- controlled. 5. Chronic kidney disease, stage III. 6. History of saddle pulmonary embolus, on chronic anticoagulation -- INR mildly subtherapeutic. PLAN AND RECOMMENDATIONS: Repeat resting 2D transthoracic echo will be performed to assess LV systolic function at this time. Cardiac enzymes will be trended x3 sets. From a medication perspective, I am adding 40 mg of intravenous furosemide this afternoon. She will continue to use topical nitrates for afterload reduction. Continue telemetry monitoring during hospitalization. Other cardiovascular medications will be continued as listed above. Further recommendations pending review of testing and clinical course. Thank you for allowing me to take part in the care of your patient. LEILANI
[2016-11-24 13:23] LABS: POTASSIUM 4.5 mmol/L (3.5-5.1)
--- NOTE | 2016-11-24 14:30 | ECHOCARDIOGRAM REPORT ---
*NOTICE TO RECEIVING LIBERTARIAN AGENCY This information is strictly Confidential and protected under [place] law. [place] law prohibits you from making any further disclosure of this information unless further disclosure is expressly permitted by the written consent of the person to whom it pertains or is authorized by law. A general authorization for the release of medical or other information is not sufficient for this purpose. Hospital accepts no responsibility if the information is made available to any other person, INCLUDING THE PATIENT. Interpretation Summary * Name: CHAIM RODRIGUEZ Study Date: 11/24/2016 01:13 PM BP: 126/68 mmHg * Patient Location: [facility] HR: 78 * : 1930 (M/d/yyyy) Gender: Female Height: 66 in * Age: 86 yrs Ethnicity: [place] Weight: 170 lb * Ordering Physician: Joel Carver DO * Performed By: Yamileth Villagran RDCS * * Reason For Study: CHF * BSA: 1.9 m2 * The study was technically adequate. * Compared to prior study, there is no significant change. * -- Conclusions -- * The left ventricle is mildly dilated. * Ejection Fraction = 20-25%. * Septal motion is consistent with conduction abnormality. * Otherwise, severe global hypokinesis. * There is mild mitral regurgitation. * Grade I diastolic dysfunction, (abnormal relaxation pattern). * Mild aortic regurgitation. Procedure Details * A complete two-dimensional transthoracic echocardiogram was performed (2D, M-mode, Doppler and color flow Doppler). * The study was technically limited. * The study was technically difficult. * A contrast injection of Definity was performed to improve assessment of LV function. * Contrast was injected into an intravenous site in the right arm. * One vial of Definity ultrasound contrast was diluted in normal saline to a total volume of 10 ml. A total of '3' ml of solution was administered during imaging. * Lot # [id number] of Definity utilized for procedure. * Expiration date DEC 19. * The attending nurse who injected the contrast agent was Otilia Sarmiento RN. Left Ventricle * The left ventricle is mildly dilated. * There is no thrombus. * There is normal left ventricular wall thickness. * Left ventricular systolic function is severely reduced. * Ejection Fraction = 20-25%. * Septal motion is consistent with conduction abnormality. * Otherwise, severe global hypokinesis. Right Ventricle * The right ventricle is normal size. * The right ventricular systolic function is normal as assessed by tricuspid annular plane systolic excursion (TAPSE) (normal >1.5 cm). Atria * The left atrial size is normal. * Right atrial size is normal. * There is no evidence of atrial septal defect, but resolution does not allow assessment for a patent foramen ovale. Mitral Valve * There is moderate to severe mitral annular calcification. * The mitral valve leaflets appear thickened, but open well. * There is no mitral valve stenosis. * There is mild mitral regurgitation. Tricuspid Valve * The tricuspid valve is normal. * There is no tricuspid stenosis. * Significant tricuspid regurgitation is absent. Aortic Valve * The aortic valve is trileaflet. * Aortic valve sclerosis mild, without significant aortic valvular stenosis. * Aortic stenosis is absent. * Mild aortic regurgitation. Pulmonic Valve * The pulmonary valve is not well seen, but the Doppler examination is normal without significant regurgitation or stenosis. Great Vessels * The aortic root and proximal ascending aorta are normal sized. Pericardium/Pleural * There is no pericardial effusion. Great Vessels * Normal inferior vena cava diameter and respiratory variation suggests normal central venous pressure. Left Ventricular Diastolic Function * Grade I diastolic dysfunction, (abnormal relaxation pattern). MMode 2D Measurements and Calculations LA dimension 3.9 cm LVAd ap4 34.6 cm\S\2 LVLd ap4 7.7 cm EDV(MOD-sp4) 128.9 ml EDV(sp4-el) 132.3 ml LVAs ap4 25.0 cm\S\2 LVLs ap4 6.7 cm ESV(MOD-sp4) 76.0 ml ESV(sp4-el) 78.8 ml EF(MOD-sp4) 41.1 % EF(sp4-el) 40.4 % SV(MOD-sp4) 52.9 ml SI(MOD-sp4) 28.4 ml/m\S\2 SV(sp4-el) 53.5 ml SI(sp4-el) 28.7 ml/m\S\2 Doppler Measurements and Calculations MV E max mesfin 67.9 cm/sec MV A max mesfin 103.8 cm/sec MV E/A 0.65 MV dec time 0.13 sec Ao V2 max 144.8 cm/sec Ao max PG 8.4 mmHg Ao max PG (full) 7.0 mmHg AI max mesfin 307.7 cm/sec AI max PG 37.9 mmHg AI dec slope 68.1 cm/sec\S\2 AI P1/2t 1322.4 msec LV V1 max PG 1.4 mmHg LV V1 max 59.2 cm/sec
[2016-11-24] MEDS ORDERED: FUROSEMIDE INJ 40 MG in SYRINGE 0 ML IV ONE ×2 (15:00→16:00)
[2016-11-24] MEDS ORDERED: INFLUENZA ADMINISTRATION CHARGE ONE (15:15)
[2016-11-24] MEDS ORDERED: INFLUENZA VACCINE HIGH DOSE 65+ 0.5 ML SYR IM. ONE (15:15)
[2016-11-24] MEDS: WARFARIN SOD 5 MG TAB PO SCH (15:44)
[2016-11-24 18:05] LABS: URINE APPEARANCE CLEAR (CLEAR); URINE BILIRUBIN NEG (NEG); URINE COLOR YELLOW; URINE NITRITE NEG (NEG); URINE PH 7.5 (4.5-7.5); URINE SPECIFIC GRAVITY 1.011 (1.000-1.030); UROBILINOGEN NEG (NEG); ZZUR CULT IF INDIC CLEAN CATCH YES
[2016-11-24 18:17] LABS: MANUAL MICROSCOPIC REQUIRED? NO; REVIEW REQ? NO
[2016-11-24] MEDS: DOCUSATE SODIUM 100 MG CAP PO SCH (20:09)
[2016-11-24] MEDS: SIMVASTATIN 20 MG TAB PO SCH (20:09)
[2016-11-24] MEDS: METOPROLOL SUCC 50MG EXT REL TAB PO SCH (20:10)
[2016-11-24] MEDS: INSULIN GLARGINE SOLOSTAR 100 UNITS/ML 3 ML PEN SC SCH (20:10)
[2016-11-24 21:31] LABS: POTASSIUM 3.9 mmol/L (3.5-5.1)
[2016-11-25] VITALS (8 sets, daily range): BP systolic 78–125; BP diastolic 42–75; PULSE 54–76; TEMP 36.4–36.9; O2SAT 94–99
[2016-11-25] MEDS: NITROGLYCERIN OINT 2% 1GM PACKET EXT SCH ×4 (05:54→23:57)
[2016-11-25 05:57] LABS: HEMATOCRIT 32.7 % (37-47); MEAN CELL VOLUME 87.2 fL (80-100); MEAN CORPUSCULAR HEMOGLOBIN 28.3 pg (25-34); MEAN CORPUSCULAR HGB CONC 32.4 g/dl (32-36); PLATELET COUNT 182 K/uL (130-400); RED BLOOD COUNT 3.75 M/uL (4.2-5.4)
[2016-11-25 06:26] LABS: BUN/CREATININE RATIO 20.9 (10-20); CALCIUM 8.6 mg/dl (8.5-10.1); CREATININE 1.2 mg/dl (0.60-1.20); POTASSIUM 3.6 mmol/L (3.5-5.1)
--- NOTE | 2016-11-25 07:23 | DIAGNOSTIC IMAGING REPORT ---
CHEST ONE VIEW PORTABLE CLINICAL HISTORY: f/u CHF dyspnea COMPARISON STUDY: 11/24/2016 FINDINGS: Mild stable cardiomegaly. Prominent parenchymal and right perihilar parenchymal prominence. This is unchanged. Diminished components of congestive failure. IMPRESSION: Some improved exam with mildly improved components of congestive failure. The above report was generated using voice recognition software. It may contain grammatical, syntax or spelling errors. Electronically signed by: Renato Pablo M.D. 11/25/2016 7:22 AM Dictated Date/Time: 11/25/2016 7:21 AM
[2016-11-25] MEDS: DOCUSATE SODIUM 100 MG CAP PO SCH ×2 (08:46→20:10)
[2016-11-25] MEDS: MULTIVITAMIN TAB PO SCH (08:47)
[2016-11-25] MEDS: SPIRONOLACTONE 25 MG TAB PO SCH (08:47)
[2016-11-25] MEDS: PANTOprazole SOD 40 MG TAB PO SCH (08:48)
[2016-11-25] MEDS: METOPROLOL SUCC 50MG EXT REL TAB PO SCH ×2 (08:48→20:10)
[2016-11-25] MEDS: LISINOPRIL 2.5 MG TAB PO SCH (08:50)
[2016-11-25] MEDS: CIPROFLOXACIN 250 MG TAB PO SCH ×2 (08:55→20:47)
[2016-11-25] MEDS: INSULIN ASPART 100 UNITS/ML 3 ML PEN SC SCH ×4 (08:58→20:08)
[2016-11-25] MEDS: INSULIN GLARGINE SOLOSTAR 100 UNITS/ML 3 ML PEN SC SCH ×2 (08:59→20:26)
--- NOTE | 2016-11-25 11:13 | Cardiology Follow-Up ---
Subjective General Date of Service: Nov 25, 2016. Pt evaluation today including: conversation w/ patient, physical exam, chart review, lab review, review of studies, review of inpatient medication list History of Present Illness The patient is a 86 year old female seen in follow-up. Patient is feeling well this a.m. Requesting discharge. Denies chest pain or shortness of breath. No orthopnea or paroxysmal nocturnal dyspnea. Offers no complaints this time. Allergies Coded Allergies: Aspirin (Verified Adverse Reaction, Intermediate, BLEEDING STOMACH, ) Nifedipine (Verified Adverse Reaction, Intermediate, SWELLS, 11/24/16) Oxycodone (Verified Adverse Reaction, Intermediate, causes her to sleep, hard to wake up, 11/24/16) Social History Smoking Status: Former Smoker Hx Tobacco Use In Past Year?: Yes (quit in 1949"s) Hx Alcohol Use - Type And Amou: No Hx Substance Use - Type And Am: No Problem List Medical Problems: (1) Acute exacerbation of CHF (congestive heart failure) Status: Acute (2) Anticoagulated on warfarin Status: Acute (3) CHF (congestive heart failure) Status: Acute (4) Chronic lung disease Status: Acute (5) Congestive heart failure Status: Acute (6) Hypoxia Status: Acute (7) Hypoxia Status: Acute (8) Hypoxia Status: Acute (9) Pulmonary edema Status: Acute (10) Pulmonary edema Status: Acute (11) Pulmonary fibrosis Status: Acute (12) Respiratory failure Status: Acute (13) SOB (shortness of breath) Status: Acute Review of Systems Respiratory: No cough, No sputum, No wheezing, No shortness of breath, No dyspnea on exertion, No dyspnea at rest, No hemoptysis Cardiac: No chest pain, No orthopnea, No PND, No edema, No claudication, No palpitations Physical Exam Vital Signs Last Vital Signs Documentation Date Time Temp Pulse Resp B/P (MAP) Pulse Ox O2 Delivery O2 Flow Rate FiO2 11/25/16 08:00 Nasal Cannula 4.0 11/25/16 07:45 36.6 72 18 123/69 (87) 96 11/24/16 07:49 Physical Exam Constitutional: General Apperance: heathly-appearing Level of Distress: NAD Ambulation: ambulating normally Head: normocephalic, atraumatic Neck: supple, trachea midline Lungs: Auscultation: no wheezing, no rales/crackles, no rhonchi Cardiovascular: Heart Auscultation: RRR, normal S1, normal S2, no murmurs, no rubs, no gallops Peripheral Pulses: Radial Pulse: normal on the right Abdomen: Bowel Sounds: normal Inspection & Palpation: soft, non-distended, no tenderness, guarding & rebound Extremities: no cyanosis, no edema, no clubbing, no ulcers Neurologic: Gait & Station: pertinent finding (no focal motor deficit) Cranial Nerves: grossly intact Assessment and Plan Assessment and Plan FINAL IMPRESSION: 1. 86-year-old female admitted with acute decompensated systolic heart failure. - Patient appears compensated and euvolemic after 2 doses of intravenous diuretic therapy 2. Nonischemic cardiomyopathy, ejection fraction of 20%-25%, declining ICD therapy in the past. 3. Nonobstructive coronary artery disease per cardiac catheterization in March 2015. 4. Hypertension -- controlled. 5. Chronic kidney disease, stage III - stable 6. History of saddle pulmonary embolus, on chronic anticoagulation -- INR therapeutic. PLAN AND RECOMMENDATIONS: I had a long discussion the patient regarding her episode of decompensated heart failure. She will resume oral diuretic therapy today. We discussed further evaluation of potential inciting causes including outpatient 14 day ZIO to exclude paroxysmal dysrhythmias, sleep medicine evaluation to exclude presence of significant ANUJ, as well as repeat cardiac catheterization. At this point the patient states "I am too old for these tests". States she would discuss further with her primary outpatient furniture finisher, Dr. Estrada. She appears stable for discharge at this time. I will arrange for outpatient cardiology follow-up. Laboratory Results Last 24 Hours Test 11/24/16 11:27 11/24/16 12:20 11/24/16 16:35 11/24/16 17:10 Bedside Glucose 350 mg/dl 93 mg/dl Potassium Level 4.5 mmol/L Troponin I 0.950 ng/ml Urine Color YELLOW Urine Appearance CLEAR Urine pH 7.5 Urine Specific [place] 1.011 Urine Protein NEG Urine Glucose (UA) NEG Urine Ketones NEG Urine Occult Blood NEG Urine Nitrite NEG Urine Bilirubin NEG Urine Urobilinogen NEG Urine Leukocyte Esterase MODERATE Urine WBC (Auto) 10-30 /hpf Urine RBC (Auto) 0-4 /hpf Urine Hyaline Casts (Auto) 0 /lpf Urine Epithelial Cells (Auto) 5-10 /lpf Urine Bacteria (Auto) 3+ Test 11/24/16 18:12 11/24/16 20:09 11/25/16 05:35 11/25/16 07:19 Potassium Level 3.9 mmol/L 3.6 mmol/L Troponin I 0.821 ng/ml Bedside Glucose 98 mg/dl 123 mg/dl White Blood Count 4.40 K/uL Red Blood Count 3.75 M/uL Hemoglobin 10.6 g/dL Hematocrit 32.7 % Mean Corpuscular Volume 87.2 fL Mean Corpuscular Hemoglobin 28.3 pg Mean Corpuscular Hemoglobin Concent 32.4 g/dl RDW Standard Deviation 51.0 fL RDW Coefficient of Variation 15.9 % Platelet Count 182 K/uL Mean Platelet Volume 9.0 fL Prothrombin Time 22.0 SECONDS Prothromb Time International Ratio 2.0 Sodium Level 138 mmol/L Chloride Level 101 mmol/L Carbon Dioxide Level 27 mmol/L Anion Gap 10.0 mmol/L Blood Urea Nitrogen 25 mg/dl Creatinine 1.20 mg/dl Est Creatinine Clear Calc Drug Dose 34.7 ml/min Estimated GFR () 47.1 Estimated GFR (Non- 40.6 BUN/Creatinine Ratio 20.9 Random Glucose 130 mg/dl Lactic Acid Level 1.4 mmol/L Calcium Level 8.6 mg/dl Magnesium Level 2.0 mg/dl
[2016-11-25] MEDS: WARFARIN SOD 5 MG TAB PO SCH (15:47)
--- NOTE | 2016-11-25 17:35 | Progress Note ---
Internal Med Progress Note Date of Service: Nov 25, 2016. Provider Documentation: SUBJECTIVE: no complain of SOB or orthopnea no cough or chest heaviness no fever or chills OBJECTIVE: Vital Signs-as noted below Exam: General-elderly female , no sign of distress Eyes-sclera non icteric ENT-NAD Neck-no JVD Lungs-CTA ,no wheeze or rales Heart-regular S1/S2 Abdomen-soft, non tender Extremities-no lower ext edema, no calf tenderness Neuro-AAO x3, no focal deficit Lab data as noted below. ASSESSMENT & PLAN: ACUTE RESPIRATORY FAILURE Presented with hypoxia, tachypnea, respiratory distress required ventilatory support with BiPAP. Most likely due to Acute CHF /flash pulmonary edema clinically improved with diuresis weaned off bipap on 02 via NC 4 L denies of any SOB , cough or respiratory discomfort ACUTE CHF WITH BI VENTRICULAR FAILURE / SEVERE NON ISCHEMIC CARDIOMYOPATHY Acute on chronic left ventricular systolic and diastolic failure - leading to flash pulmonary edema ECHO : The left ventricle is mildly dilated. Ejection Fraction = 20-25%. Septal motion is consistent with conduction abnormality. Otherwise, severe global hypokinesis. There is mild mitral regurgitation. Grade I diastolic dysfunction, (abnormal relaxation pattern). Mild aortic regurgitation. -pt declined AICD in past presented with elevated ProBNP /pulmonary congestion in Cxray symptom improved with IV Lasix dose appreciate input form Cardiology pt is resumed with her out pt diuretics regimen -PO Lasix appears to be euvolemic now Continue spironolactone, lisinopril, metoprolol succinate. repeat Cxray shows : improvement of congestion cont to monitor vol status UTI : urine culture -E Coli sensitivity pending started on Cipro may need adjustment of Abx once sensitivity pending CORONARY ARTERY DISEASE History nonocclusive coronary artery disease as per Cardiac Cath in 2016 no evidence of angina or ACS Continue metoprolol./ACEI /statin /Aspirin HYPERTENSION BP stable cont out pt antihypertensive CHRONIC RESPIRATORY FAILURE On home O2 2 LPM. Continue supplemental O2. HX OF NON OPERABLE SMALL CELL LUNG CA S/p radiation and chemo tx HX OF SADDLE PE : on Coumadin INR therapeutic CKD III Serum creatinine 1.3. -> .12 renal function remains stable DM TYPE 2 . Hgb A1C 6.5 in clinic 10/31/16. Hold metformin while acutely ill. Lantus / NovoLog per protocol VTE PROPHYLAXIS Continue warfarin. Ambulate. RESUSCITATION STATUS She has a living will. Resuscitation status, "Level 5" (DNR). . DISPOSITION PT/OT eval requested expected to be discharged home when medically stable Vital Signs: Date Time Temp Pulse Resp B/P (MAP) Pulse Ox O2 Delivery O2 Flow Rate FiO2 11/25/16 20:12 36.5 76 18 123/75 (91) 99 Nasal Cannula 4.0 11/25/16 17:29 125/72 (89) 11/25/16 16:10 Nasal Cannula 4.0 11/25/16 15:41 36.5 54 20 107/63 (78) 97 4.0 11/25/16 12:31 36.4 70 18 103/67 (79) 98 Nasal Cannula 4.0 11/25/16 12:00 Nasal Cannula 4.0 11/25/16 08:00 Nasal Cannula 4.0 11/25/16 07:45 36.6 72 18 123/69 (87) 96 Nasal Cannula 4.0 11/25/16 04:00 Nasal Cannula 4.0 11/25/16 03:40 36.9 74 14 108/55 (72) 96 4.0 11/25/16 00:09 36.8 71 20 90/47 (61) 94 2.0 11/25/16 00:00 Nasal Cannula 4.0 Lab Results: Results Past 24 Hours Test 11/25/16 05:35 11/25/16 07:19 11/25/16 11:18 11/25/16 16:32 Range/Units White Blood Count 4.40 4.8-10.8 K/uL Red Blood Count 3.75 4.2-5.4 M/uL Hemoglobin 10.6 12.0-16.0 g/dL Hematocrit 32.7 37-47 % Mean Corpuscular Volume 87.2 80-100 fL Mean Corpuscular Hemoglobin 28.3 25-34 pg Mean Corpuscular Hemoglobin Concent 32.4 32-36 g/dl RDW Standard Deviation 51.0 36.4-46.3 fL RDW Coefficient of Variation 15.9 11.5-14.5 % Platelet Count 182 130-400 K/uL Mean Platelet Volume 9.0 7.4-10.4 fL Prothrombin Time 22.0 9.0-12.0 SECONDS Prothromb Time International Ratio 2.0 0.9-1.1 Sodium Level 138 136-145 mmol/L Potassium Level 3.6 3.5-5.1 mmol/L Chloride Level 101 98-107 mmol/L Carbon Dioxide Level 27 21-32 mmol/L Anion Gap 10.0 3-11 mmol/L Blood Urea Nitrogen 25 7-18 mg/dl Creatinine 1.20 0.60-1.20 mg/dl Est Creatinine Clear Calc Drug Dose 34.7 ml/min Estimated GFR () 47.1 Estimated GFR (Non- 40.6 BUN/Creatinine Ratio 20.9 10-20 Random Glucose 130 70-99 mg/dl Lactic Acid Level 1.4 0.4-2.0 mmol/L Calcium Level 8.6 8.5-10.1 mg/dl Magnesium Level 2.0 1.8-2.4 mg/dl Bedside Glucose 123 146 117 70-90 mg/dl Test 11/25/16 20:02 Range/Units Bedside Glucose 124 70-90 mg/dl
[2016-11-25] MEDS: SIMVASTATIN 20 MG TAB PO SCH (20:10)
[2016-11-26] VITALS (7 sets, daily range): BP systolic 103–143; BP diastolic 57–73; PULSE 68–70; TEMP 36.3–36.7; O2SAT 86–100
[2016-11-26] MEDS: NITROGLYCERIN OINT 2% 1GM PACKET EXT SCH ×2 (05:39→12:20)
[2016-11-26 06:52] LABS: INR 2.3 (0.9-1.1); PROTHROMBIN TIME (PATIENT) 25.3 SECONDS (9.0-12.0)
[2016-11-26] MEDS ORDERED: CPR250 PO (07:38)
[2016-11-26] MEDS: CIPROFLOXACIN 250 MG TAB PO SCH (07:40)
[2016-11-26] MEDS: DOCUSATE SODIUM 100 MG CAP PO SCH (07:40)
[2016-11-26] MEDS: SPIRONOLACTONE 25 MG TAB PO SCH (07:40)
[2016-11-26] MEDS: METOPROLOL SUCC 50MG EXT REL TAB PO SCH (07:40)
[2016-11-26] MEDS: MULTIVITAMIN TAB PO SCH (07:40)
[2016-11-26] MEDS: PANTOprazole SOD 40 MG TAB PO SCH (07:41)
[2016-11-26] MEDS: LISINOPRIL 2.5 MG TAB PO SCH (07:41)
[2016-11-26] MEDS: INSULIN GLARGINE SOLOSTAR 100 UNITS/ML 3 ML PEN SC SCH (08:09)
[2016-11-26] MEDS: INSULIN ASPART 100 UNITS/ML 3 ML PEN SC SCH ×2 (08:09→12:19)
--- NOTE | 2016-11-26 12:14 | Discharge Instructions ---
Discharge Instructions Date of Service Nov 26, 2016. Admission Reason for Admission: Chf (Congestive Heart Failure) Discharge Discharge Diagnosis / Problem: ACUTE CHF WITH SYTOLIC DYSFUNCTIN /URINARY TRACT INFECTION Discharge Goals Goal(s): Decrease discomfort, Improve disease control, Diagnostic testing, Therapeutic intervention Activity Recommendations Activity Limitations: resume your previous activity . Instructions / Follow-Up Instructions / Follow-Up HOSPITAL FOLLOW UP: 11/30/2016 10:00 AM Stan Vinson MD [facility] CARDIOLOGY FOLLOW UP : Saturday12/05/2016 2:25 PM Aries Estrada Jr., DO Cardiology, [facility] Call your Primary Care doctor if any of the following symptoms or problems start or get worse: * Shortness of breath or difficulty breathing * Wake up at night short of breath * Chest pain * Cough * Swelling of your hands, feet, or legs * More fatigued or tired with your normal activity * Palpitations - sudden fast heart beats WEIGHT * Weigh yourself every morning after using the bathroom. * Use the same scale. * Wear the same amount of clothing. * Write your weight down on a chart. * Call your Primary Care doctor if you gain more than 2-3 pounds in 1-2 days. MEDICATIONS * Use this discharge instruction sheet for medication instructions. * Take your medications at the time your doctor ordered. * Do not skip a dose of your medicines. * If you miss a dose of medicine, take it as soon as possible, but DO NOT DOUBLE A DOSE. * Read your medicine information when you get home. * Know all of the side effects of your medicine. If in doubt, ask your pharmacist * Call your Primary Care doctor's office if you have any side effects. * Be sure all of your doctors know what medicine and herbs you take (including cold, flu, and herbal medicine). Take the following with you to your follow-up doctor appointments: * Weight Chart * Medication List * List of questions Do not drink excessive alcohol, beer or wine. Current Hospital Diet Patient's current hospital diet: AHA Diet (Heart Healthy), Diabetes Type 2 Diet Discharge Diet Recommended Diet: AHA Diet (Heart Healthy), Diabetes Type 2 Diet Pending Studies Studies pending at discharge: no Medical Emergencies . Who to Call and When: Call 911 or go to the Emergency Room if: * If at any time you feel your situation is an emergency * You have tightness or pain in your chest that does not go away with rest or Nitroglycerin * You are very short of breath even with rest . Non-Emergent Contact Non-Emergency issues call your: Primary Care Provider . . "Provider Documentation" section prepared by Rebeca Meier. . VTE Core Measure Inpt VTE Proph given/why not?: Warfarin (Coumadin)
[2016-11-26] MEDS ORDERED: WARFARIN SOD 2.5 MG TAB PO SCH (16:00)
--- NOTE | 2016-11-26 22:46 | Progress Note ---
Internal Med Progress Note Date of Service: Nov 26, 2016. Provider Documentation: SUBJECTIVE: SOB , PYLE has resolved, feels like her own self 2 step exercise done , pt needs 2 L 02 o2 cont ( was on 2 L at night and as needed ) denies of any dizzy spell , no weakness, no chest heaviness pt refused to have any other intervention done ( AICD /zip patch ) for severe cardiomyopathy -had discussion with Cardiology given CHF instructions and booklet -updated regarding S/S of decompensated CHF and call physician immediately pt verbalizes understanding arrangements made for home health visiting nurse OBJECTIVE: Vital Signs-as noted below Exam: General-elderly female , no sign of distress Eyes-sclera non icteric ENT-NAD Neck-no JVD Lungs-CTA ,no wheeze or rales Heart-regular S1/S2 Abdomen-soft, non tender Extremities-no lower ext edema, no calf tenderness Neuro-AAO x3, no focal deficit Lab data as noted below. ASSESSMENT & PLAN: ACUTE RESPIRATORY FAILURE resolved -respiratory status at baseline Presented with hypoxia, tachypnea, respiratory distress required ventilatory support with BiPAP. due to Acute CHF /flash pulmonary edema ( underlying severe non ischemic cardiomyopathy ) clinically improved with 2 dose of IV diuresis ( Lasix 40 mg IV ) on 2 L 02 via nasal canula 2 step exercise done -requires cont 02 arrangements made for home 02 pt will continue will home diuretics ACUTE CHF WITH BI VENTRICULAR FAILURE / SEVERE NON ISCHEMIC CARDIOMYOPATHY Acute on chronic left ventricular systolic and diastolic failure - leading to flash pulmonary edema ECHO : The left ventricle is mildly dilated. Ejection Fraction = 20-25%. Septal motion is consistent with conduction abnormality. Otherwise, severe global hypokinesis. There is mild mitral regurgitation. Grade I diastolic dysfunction, (abnormal relaxation pattern). Mild aortic regurgitation. -pt declined AICD -had d/W with Cardiology presented with elevated ProBNP /pulmonary congestion in Cxray symptom improved with IV Lasix dose appreciate input form Cardiology pt is resumed with her out pt diuretics regimen -PO Lasix appears to be euvolemic now Continue spironolactone, lisinopril, metoprolol succinate. repeat Cxray shows : improvement of congestion [facility] home di[facility] UTI : urine culture -E Coli -awan sensitive started on Cipro -complete 5 days course CORONARY ARTERY DISEASE History nonocclusive coronary artery disease as per Cardiac Cath in 2016 no evidence of angina or ACS Continue metoprolol./ACEI /statin /Aspirin HYPERTENSION BP stable cont out pt antihypertensive CHRONIC RESPIRATORY FAILURE On home O2 2 LPM.( at night and HS ) 2 step exercise done -requires cont 02 2 L arrangements made for home 02 HX OF NON OPERABLE SMALL CELL LUNG CA S/p radiation and chemo tx HX OF SADDLE PE : on Coumadin INR therapeutic CKD III Serum creatinine 1.3. -> .12 renal function remains stable DM TYPE 2 . Hgb A1C 6.5 in clinic 10/31/16. Hold metformin while acutely ill. Lantus / NovoLog per protocol VTE PROPHYLAXIS Continue warfarin. Ambulate. RESUSCITATION STATUS She has a living will. Resuscitation status, "Level 5" (DNR). . DISPOSITION stable to be discharged home today Vital Signs: Lab Results:
--- NOTE | 2016-11-26 22:46 | Discharge Summary ---
Discharge Summary Date of Service Nov 26, 2016. Discharge Summary Admission Date: Nov 24, 2016 at 07:44 Discharge Date: Nov 26, 2016 Discharge Disposition: Home with services Principal Diagnosis: ACUTE CHF WITH SYSTOLIC DYSFUNCTION /URINARY TRACT INFECTION Procedures: ECHO : The left ventricle is mildly dilated. Ejection Fraction = 20-25%. Septal motion is consistent with conduction abnormality. Otherwise, severe global hypokinesis. There is mild mitral regurgitation. Grade I diastolic dysfunction, (abnormal relaxation pattern). Mild aortic regurgitation. Consultations: [facility] Medication Reconciliation New Medications: Ciprofloxacin (Ciprofloxacin HCl) 250 Mg Tab 250 MG PO Q12H for 4 Days, #8 TAB Continued Medications: Alendronate Sodium (Alendronate Sodium) 70 Mg Tab 70 MG PO WK TAKE THIS MEDICATION EVERY SATURDAY 60 MINUTES BEFORE FIRST MEAL OF THE DAY WITH 8 OUNCES OF WATER AND REMAIN UPRIGHT FOR 60 MINUTES AFTER TAKING. Calcium Carbonate-Cholecalcife (Calcium 600 + D 600-200 mg-Unit) 1 Tab Tab 1 TAB PO BID Docusate Sodium (Docusate Sodium) 100 Mg Cap 100 MG PO BID Furosemide (Furosemide) 40 Mg Tab 40 MG PO DAILY Home O2 Therapy (Oxygen) Gas 2 LITERS NA CONTINOUS, BTL Lisinopril (Lisinopril) 2.5 Mg Tab 2.5 MG PO DAILY Metformin HCl (Metformin HCl) 500 Mg Tab 500 MG PO BID Metoprolol Succinate (Metoprolol Succinate ER) 50 Mg Tabcr 75 MG PO BID Multivitamin (Multivitamin) Tab 1 TAB PO DAILY Nitroglycerin (Nitrostat) 0.4 Mg Tab 0.4 MG SL UD PRN for Chest Pain PLACE 1 TABLET UNDER THE TONGUE EVERY 5 MINUTES DIRECTED IF NEEDED FOR CHEST PAIN. Pantoprazole (Pantoprazole Sodium) 40 Mg Tab 40 MG PO DAILY Simvastatin (Simvastatin) 20 Mg Tab 20 MG PO HS Spironolactone (Spironolactone) 25 Mg Tab 12.5 MG PO DAILY Warfarin Sodium (Warfarin Sodium) 5 Mg Tab 0 PO UD 5 mg pills. 1/2 pill ( 2.5 mg ) Mon, Wed, Sat 1 pill ( 5 mg ) , Th, Sat, Sun Admission Information HPI (per Admitting provider): 86 YO female followed by Dr. Vinson for Family Medicine and Dr. Estrada for Cardiology. History of nonischemic cardiomyopathy (LVEF 20-25%), nonobstructive CAD, pulmonary embolism, lung Ca, and other problems noted below. She was in her usual state of fair health until around 04:30 this morning when she awoke from sleep with acute dyspnea. No fever. Mild nonproductive cough. No chest pain. No edema. Nausea, no vomiting. No recent weight gain. No recent med changes. She was brought to ED where she was found to be hypoxic and in respiratory distress. Placed on BiPAP and received O2, IV furosemide, NTP with improvement of her symptoms. . Physical Exam (per Admitting): General Appearance: WD/WN, + mild distress Head: normocephalic, atraumatic Eyes: normal inspection, PERRL, EOMI, sclerae normal (conjunctivae pink) ENT: hearing grossly normal, pharynx normal, + pertinent finding (upper dentures) Neck: supple, no adenopathy, thyroid normal, trachea midline Respiratory/Chest: no accessory muscle use, + crackles Cardiovascular: regular rate, rhythm, no edema, no gallop (none appreciated , exam limited), no murmur (none appreciated, exam limited), + JVD Abdomen/GI: normal bowel sounds, non tender, soft, no organomegaly Extremities/Musculoskelatal: normal inspection, no calf tenderness, no pedal edema, + pertinent finding (capillary refill toes 1-2 sec; pedal pulses diminished) 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 due to Acute CHF /flash pulmonary edema ( underlying severe non ischemic cardiomyopathy ) clinically improved with 2 dose of IV diuresis ( Lasix 40 mg IV ) on 2 L 02 via nasal canula 2 step exercise done -requires cont 02 arrangements made for home 02 pt will continue will home diuretics ACUTE CHF WITH BI VENTRICULAR FAILURE / SEVERE NON ISCHEMIC CARDIOMYOPATHY Acute on chronic left ventricular systolic and diastolic failure - leading to flash pulmonary edema ECHO : The left ventricle is mildly dilated. Ejection Fraction = 20-25%. Septal motion is consistent with conduction abnormality. Otherwise, severe global hypokinesis. There is mild mitral regurgitation. Grade I diastolic dysfunction, (abnormal relaxation pattern). Mild aortic regurgitation. -pt declined AICD -had d/W with Cardiology presented with elevated ProBNP /pulmonary congestion in Cxray symptom improved with IV Lasix dose appreciate input form Cardiology pt is resumed with her out pt diuretics regimen -PO Lasix appears to be euvolemic now Continue spironolactone, lisinopril, metoprolol succinate. repeat Cxray shows : improvement of congestion [facility] will home diuretics UTI : urine culture -E Coli -awan sensitive started on Cipro -complete 5 days course CORONARY ARTERY DISEASE History nonocclusive coronary artery disease as per Cardiac Cath in 2015 no evidence of angina or ACS Continue metoprolol./ACEI /statin /Aspirin HYPERTENSION BP stable cont out pt antihypertensive CHRONIC RESPIRATORY FAILURE On home O2 2 LPM.( at night and HS ) 2 step exercise done -requires cont 02 2 L arrangements made for home 02 HX OF NON OPERABLE SMALL CELL LUNG CA S/p radiation and chemo tx HX OF SADDLE PE : on Coumadin INR therapeutic CKD III Serum creatinine 1.3. -> .12 renal function remains stable DM TYPE 2 . Hgb A1C 6.5 in clinic 10/31/16. Hold metformin while acutely ill. Lantus / NovoLog per protocol VTE PROPHYLAXIS Continue warfarin. Ambulate. RESUSCITATION STATUS She has a living will. Resuscitation status, "Level 5" (DNR). . DISPOSITION stable to be discharged home today Total time spent on discharge = 35 mins This includes examination of the patient, discharge planning, medication reconciliation, and communication with other providers. Discharge Instructions DI: CHF v4 Discharge Instructions Date of Service Nov 26, 2016. Admission Reason for Admission: Chf (Congestive Heart Failure) Discharge Discharge Diagnosis / Problem: ACUTE CHF WITH SYSTOLIC DYSFUNCTION /URINARY TRACT INFECTION Discharge Goals Goal(s): Decrease discomfort, Improve disease control, Diagnostic testing, Therapeutic intervention Activity Recommendations Activity Limitations: resume your previous activity . Instructions / Follow-Up Instructions / Follow-Up HOSPITAL FOLLOW UP: 11/30/2016 10:00 AM Stan Vinson MD [facility] CARDIOLOGY FOLLOW UP : Saturday12/05/2016 2:25 PM Aries Estrada Jr., DO Cardiology, [facility] Call your Primary Care doctor if any of the following symptoms or problems start or get worse: * Shortness of breath or difficulty breathing * Wake up at night short of breath * Chest pain * Cough * Swelling of your hands, feet, or legs * More fatigued or tired with your normal activity * Palpitations - sudden fast heart beats WEIGHT * Weigh yourself every morning after using the bathroom. * Use the same scale. * Wear the same amount of clothing. * Write your weight down on a chart. * Call your Primary Care doctor if you gain more than 2-3 pounds in 1-2 days. MEDICATIONS * Use this discharge instruction sheet for medication instructions. * Take your medications at the time your doctor ordered. * Do not skip a dose of your medicines. * If you miss a dose of medicine, take it as soon as possible, but DO NOT DOUBLE A DOSE. * Read your medicine information when you get home. * Know all of the side effects of your medicine. If in doubt, ask your pharmacist * Call your Primary Care doctor's office if you have any side effects. * Be sure all of your doctors know what medicine and herbs you take (including cold, flu, and herbal medicine). Take the following with you to your follow-up doctor appointments: * Weight Chart * Medication List * List of questions Do not drink excessive alcohol, beer or wine. Current Hospital Diet Patient's current hospital diet: AHA Diet (Heart Healthy), Diabetes Type 2 Diet Discharge Diet Recommended Diet: AHA Diet (Heart Healthy), Diabetes Type 2 Diet Pending Studies Studies pending at discharge: no Medical Emergencies . Who to Call and When: Call 911 or go to the Emergency Room if: * If at any time you feel your situation is an emergency * You have tightness or pain in your chest that does not go away with rest or Nitroglycerin * You are very short of breath even with rest . Non-Emergent Contact Non-Emergency issues call your: Primary Care Provider . . "Provider Documentation" section prepared by Rebeca Meier. . VTE Core Measure Inpt VTE Proph given/why not?: Warfarin (Coumadin) Additional Copies To Aries Estrada D.O. Oesterling, Brett, M.D.
== END 2016-11-26 15:02 | disposition home health service (06) | DRG 291 ==
LOC: EDBD 05:29 → C.EDB 05:30 → C.MED 07:44 → ENRESERV 08:03
PROVIDERS: ADMIT Hospitalist; ATTEND Hospitalist
DX: I50.43 Acute on chronic combined systolic (congestive) and diastolic (congestive) heart failure (principal); J96.21 Acute and chronic respiratory failure with hypoxia; I13.0 Hypertensive heart and chronic kidney disease with heart failure and stage 1 through stage 4 chronic kidney disease, or unspecified chronic kidney disease; I42.9 Cardiomyopathy, unspecified; N39.0 Urinary tract infection, site not specified; N18.3 Chronic kidney disease, stage 3 (moderate); E11.22 Type 2 diabetes mellitus with diabetic chronic kidney disease; I25.10 Atherosclerotic heart disease of native coronary artery without angina pectoris; B96.20 Unspecified Escherichia coli [E. coli] as the cause of diseases classified elsewhere; Z66 Do not resuscitate; Z79.01 Long term (current) use of anticoagulants; Z79.84 Long term (current) use of oral hypoglycemic drugs; Z79.899 Other long term (current) drug therapy; Z87.891 Personal history of nicotine dependence; Z99.81 Dependence on supplemental oxygen; Z83.3 Family history of diabetes mellitus; Z92.3 Personal history of irradiation; Z86.711 Personal history of pulmonary embolism; Z85.118 Personal history of other malignant neoplasm of bronchus and lung